=== PATIENT | male | born 1960 | race African-American/Black ===

== ENCOUNTER → 2017-11-17 | Outpatient (CLI) | payer OTHER | END | disposition home or self-care (01) | LOC: PNCL 10:15 | DX: M13.88 Other specified arthritis, other site (principal); M79.604 Pain in right leg | CPT/HCPCS: 99214 ==

== ENCOUNTER → 2018-04-21 | Outpatient (CLI) | payer OTHER ==
[~2018-04-21] MED LIST: ALPR0.254 PO; ATOR20TA58 PO; BUPIVACAINE MPF 0.25% 10 ML VIAL. ONE; GABA300C18 PO; IOHEXOL 180 MG/ML 10 ML VIAL. ONE; MELO15TA23 PO; TRAM50TA PO; methylPREDNISolone ACETATE 80 MG/ML VIAL. ONE
--- NOTE | 2018-04-21 17:48 | PAIN ---
DATE OF SERVICE: 04/21/2018 PROGRESS NOTE FOR PAIN CLINIC DIAGNOSES: 1. Lumbar radiculopathy with lumbar degenerative disk disease. 2. Post-lumbar laminectomy syndrome. HISTORY OF PRESENT ILLNESS: The patient is a 57-year-old male who returns today for epidural steroid injection. The patient reports still significant pain in the low back, right lower extremity as it was previously, into the lateral thigh, anterior thigh, medial thigh, medial calf as well as in the posterior thigh as well across the low back. The patient reports it is tingling, burning, aching, sharp, shooting, radiating, becoming more constant, worse with walking, standing, changing positions, still wakes him up from sleep and more noticeable with standing still. The patient reports it is an 8 on a scale of 10 at its worst, 5 on an average, 5 at its least and is 5 today. The patient reports no new motor or sensory deficits, no new bowel or bladder incontinence or other complaints. PHYSICAL EXAMINATION: VITAL SIGNS: Today, the patient's blood pressure is 120/85, pulse 69, respirations 16, temperature 98.2 degrees Fahrenheit, height 6 feet 2 inches, weight is 235 pounds. GENERAL: The patient is awake, alert, oriented, appropriate, very pleasant demeanor. HEENT: Head is normocephalic, atraumatic. Extraocular muscles are intact and symmetrical. Oral cavity: Mucous membranes are moist and pink. Dentition is intact. NECK: Shows anterior throat supple without palpable lymphadenopathy noted. Swallow reflex is symmetrical. CHEST: Shows normal with inspection. Breath sounds are clear to auscultation bilaterally. HEART: Shows S1, S2 clear. No murmurs auscultated. ABDOMEN: Soft, nontender, nondistended. No palpable organomegaly is noted. No rebound or guarding demonstrated. BACK: Shows spine grossly in the midline. Well-healed surgical scar is noted in the lumbar distribution. Lumbar paraspinous muscle shows symmetrical on inspection; on palpation, it shows some moderate tenderness but only diffusely without radiation or trigger points. The patient has good rotation and motion of lumbar spine without significant pain as well. EXTREMITIES: The patient's lower extremities show deep tendon reflexes 2+ in the patella and tendo calcaneus tendons. Motor exam is strong with 5/5 dorsiflexion and extension on the left and 4/5 on the right. Peripheral pulses are 1+ posterior tibial. No peripheral edema is noted bilaterally. Options were discussed with the patient. The patient's old chart was reviewed as was current medication regimen updated. Current review of systems updated today as well. We will proceed with a right-sided L4-L5 transforaminal epidural steroid injection today with fluoroscopic guidance. Risks were again discussed including, but not limited to bleeding, infection, possibility of epidural hematoma and subsequent neurological compromise, dural puncture, headaches, spinal cord and/or nerve damage, side effects of steroid medication, potential injection in the vertebral artery and permanent ischemic damage as well as poor results regarding pain control. The patient understands and wished to proceed. The patient will return to clinic in approximately 2 weeks for followup, was counseled on return appointment, activity level and side effects to be aware of. DIAGNOSES: 1. Lumbar radiculopathy with lumbar degenerative disk disease. 2. Post-lumbar laminectomy syndrome. PROCEDURE: Right-sided L4-L5 transforaminal epidural steroid injection using C-arm fluoroscopic guidance under sterile prep and drape using local anesthetic. MEDICATION INJECTED: A total of 80 mg Depo-Medrol plus 3 mL of 0.25% bupivacaine and 1.5 mL of Isovue for contrast with no washout on digital subtraction. CONDITION AT DISCHARGE: Stable. The patient tolerated the procedure well, had no complications. MOISES FISHER MD DR: ALBER/yon JOB#: [id number] / [id number]
== END | disposition home or self-care (01) ==
LOC: PNCL 13:27
PROVIDERS: ATTEND Anesthesiology
DX: M51.16 Intervertebral disc disorders with radiculopathy, lumbar region (principal); M96.1 Postlaminectomy syndrome, not elsewhere classified
CPT/HCPCS: 64483; J1040; J3490; Q9965

== ENCOUNTER → 2018-08-04 | Outpatient (CLI) | payer OTHER ==
[~2018-08-04] MED LIST changes: +NAPR220C4 PO
--- NOTE | 2018-08-04 21:50 | PAIN ---
DATE OF SERVICE: 08/04/2018 PROGRESS NOTE FOR PAIN CLINIC DIAGNOSIS: Lumbar radiculopathy with lumbar degenerative disk disease and post-lumbar laminectomy syndrome. HISTORY OF PRESENT ILLNESS: The patient is a 58-year-old male who returns for followup status post right-sided lumbar transforaminal injection x 1 on 04/21/2018. The patient did very well with this with very good improvement for about 2 months. The pain was decreased by about 80%, now is down to about 30%. The patient reports no new motor or sensory deficits or new bowel or bladder incontinence, but the pain is returning in the low back and right lower extremity as it was previously. The patient reports it is tingling, aching, sharp, shooting, radiating in the right leg, posterior gluteus, posterior thigh, lateral thigh, lateral anterior thigh, medial thigh, medial lower leg, lateral lower leg and the lateral aspect of the foot on the right side with some tingling in the foot, which is new. The patient reports no new motor or sensory deficits, no new bowel or bladder incontinence. Shot helped the shooting pain significantly in the right leg. The patient reports sporadically it awakens him from sleep, but not every night. He can easily reposition and get back to sleep. The patient reports no new deficits or other complaints. PHYSICAL EXAMINATION: VITAL SIGNS: The patient's blood pressure is 130/79, pulse 80, respirations 16, temperature 98.2 degrees Fahrenheit, height is 6 feet 2 inches, weight is 239 pounds. GENERAL: The patient is awake, alert, oriented, appropriate, very pleasant demeanor. HEENT: Head shows normocephalic, atraumatic. Extraocular movements are intact and symmetrical. Oral cavity: Mucous membranes are moist and pink. Dentition is intact. NECK: Shows anterior throat supple without palpable lymphadenopathy noted. Swallow reflex is symmetrical. CHEST: Shows normal on inspection. Breath sounds are clear to auscultation bilaterally. HEART: Shows S1, S2 clear. No murmurs auscultated. ABDOMEN: Soft, nontender, nondistended. No palpable organomegaly is noted. No rebound or guarding demonstrated. BACK: Shows spine grossly in the midline. Normal appearing thoracic kyphosis and some minor flattening of lumbar lordotic curvature with well-healed surgical scar noted in the lumbar distribution. Lumbar paraspinous muscle shows symmetrical on inspection, on palpation shows some moderate tenderness diffusely, but without radiation. The patient has good rotational motion of lumbar spine, both laterally as well as extension and flexion without difficulty. EXTREMITIES: Lower extremities show deep tendon reflexes 2+ in the patellar and 1+ tendo-calcaneus tendons, are equal. Motor exam is 5/5 on the left and 4/5 on the right with dorsiflexion and extension. Peripheral pulses are 1+ posterior tibia. No peripheral edema is noted bilaterally. Options were discussed with the patient. The patient's old chart was reviewed as his current medication regimen updated. Current review of systems updated today as well. We will proceed with a right L4-L5 transforaminal injection. It is the second in this series with fluoroscopic guidance. Risks were again discussed including, but not limited to bleeding, infection, possibility of epidural hematoma and subsequent neurologic compromise, dural puncture, headaches, spinal cord and/or nerve damage, side effects of steroid medication and poor results regarding pain control as well as potential injection of vertebral artery and permanent ischemic damage. The patient understands and wished to proceed. The patient will return to the clinic in approximately 2 weeks for followup, was counseled on return appointment, activity level and side effects to be aware of. DIAGNOSIS: Lumbar radiculopathy with lumbar degenerative disk disease and lumbar post-laminectomy syndrome. PROCEDURE: Right-sided L4-L5 transforaminal epidural injection using C-arm fluoroscopic guidance under sterile prep and drape using local anesthetic. MEDICATION INJECTED: A total of 80 mg Depo-Medrol plus 2 mL of 0.25% bupivacaine and 1.5 mL of Omnipaque for contrast with negative uptake on digital subtraction. CONDITION AT DISCHARGE: Stable. The patient tolerated the procedure well, had no complications. MOISES FISHER MD DR: ALBER/yon JOB#: [id number] / [id number]
== END | disposition home or self-care (01) ==
LOC: PNCL 11:07
PROVIDERS: ATTEND Anesthesiology
DX: M51.16 Intervertebral disc disorders with radiculopathy, lumbar region (principal); M96.1 Postlaminectomy syndrome, not elsewhere classified
CPT/HCPCS: 64483; J1040; J3490; Q9965

== ENCOUNTER → 2018-12-01 | Outpatient (CLI) | payer OTHER ==
--- NOTE | 2018-12-02 02:14 | PAIN ---
DATE OF SERVICE: 12/01/2018 DIAGNOSES: Lumbar radiculopathy with lumbar degenerative disk disease and lumbar post-laminectomy syndrome. HISTORY OF PRESENT ILLNESS: The patient is a 58-year-old male who returns for followup status post right transforaminal injection of the right L4-L5 most recently on 10/20/2018. The patient reports about 30% improvement where normally it is close to a 100% improvement. The patient still has some pain in the right lower extremity, posterior gluteus, posterior lateral thigh, lateral anterior thigh, anterior medial thigh, medial lower leg and lateral lower leg. The patient reports it is aching, sharp, dull, shooting, tingling, burning at times, radiating significantly and becoming more constant and more severe with walking, standing, better with sitting or lying down. It awakens him from sleep, however, when he lays on his right side about every 3-4 hours, the patient reports he usually repositions, takes pain medication, or get out of bed to decrease the pain and is able to get back to sleep. The patient reports he was increasing his distance walking, but not truly to the extent that he does after the injections in the past. The patient reports no new motor or sensory deficits, no new bowel or bladder incontinence. PHYSICAL EXAMINATION: VITAL SIGNS: The patient's blood pressure is 110/70, pulse 81, respirations 18, temperature 98.2 degrees Fahrenheit, height 6 feet 2 inches and weight 227 pounds. GENERAL: The patient is awake, alert, oriented, appropriate, very pleasant demeanor. HEENT: Shows normocephalic and atraumatic. Extraocular movements are intact and symmetrical. Oral cavity shows mucous membranes are moist and pink. Dentition is intact. NECK: Shows anterior throat supple without palpable lymphadenopathy noted. Swallow reflex symmetrical. CHEST: Shows normal on inspection. Breath sounds are clear to auscultation bilaterally. HEART: Shows S1, S2 clear. No murmurs auscultated. ABDOMEN: Soft, nontender, nondistended. No palpable organomegaly is noted. No rebound or guarding demonstrated. BACK: Shows spine grossly in the midline. Normal appearing thoracic kyphosis and lumbar lordotic curvature slightly flattened with well-healed surgical scar noted. Lumbar paraspinous musculature shows symmetrical paraspinous musculature, good rotational motion both laterally as well as extension and flexion without significant difficulty. Palpation shows some mild tenderness in the inferior aspect of the lumbar paraspinous musculature, but only diffusely without radiation. No trigger points. The patient shows good extension as well. EXTREMITIES: Lower extremities show deep tendon reflexes 2+ in the patellar and 1+ in the tendo-calcaneus. Motor exam is strong with 5/5 dorsiflexion and extension on the left and 4/5 on the right. Peripheral pulses are 1+ posterior tibial. No peripheral edema is noted bilaterally. Options were discussed with the patient. The patient's old chart was reviewed. His current medication regimen is updated. Current review of systems is updated today as well. We will proceed with a right-sided L4-L5 transforaminal injection today with fluoroscopic guidance. Risks were again discussed including, but not limited to bleeding, infection, possibility of epidural hematoma and subsequent neurological compromise, dural puncture, headaches, spinal cord and/or nerve damage, side effects of steroid medication, potential injection of the vertebral artery at that level and permanent ischemic damage as well as poor results regarding pain control and exposure to fluoroscopy. The patient understands and wished to proceed. The patient will return to the clinic in approximately 2 weeks for followup, was counseled on return appointment, activity level and side effects to be aware of. DIAGNOSES: Lumbar radiculopathy with lumbar degenerative disk disease and lumbar post-laminectomy syndrome. PROCEDURE: Right-sided L4-L5 transforaminal epidural injection using C-arm fluoroscopic guidance under sterile prep and drape using local anesthetic. MEDICATIONS INJECTED: A total of 80 mg Depo-Medrol plus total 2 mL of 0.25% bupivacaine and 1.5 mL of Isovue for contrast with good spread both medially into the epidural space as well as laterally along the nerve root with no washout and no uptake on digital subtraction. CONDITION AT DISCHARGE: Stable. The patient tolerated the procedure well, had no complications. MOISES FISHER MD DR: ALBER/yon JOB#: [id number] / [id number]
== END ==
LOC: PNCL 10:16
PROVIDERS: ATTEND Anesthesiology
DX: M51.16 Intervertebral disc disorders with radiculopathy, lumbar region (principal); M96.1 Postlaminectomy syndrome, not elsewhere classified
CPT/HCPCS: 64483; J1040; J3490; Q9965